=== PATIENT | male | born 1950 | race Caucasian/White ===

== ENCOUNTER → 2016-04-07 | Outpatient (CLI) | payer OTHER, MEDICARE ==
--- NOTE | 2016-04-07 12:21 | DX ---
PA and lateral chest x-ray 0938 hours. History: Followup pulmonary infiltrates. Findings: Comparison to March 20, 2016. Heart size and pulmonary vasculature remain normal. PICC line remains in place with tip in good posit ion. Patchy bilateral alveolar infiltrates have improved slightly since the prior study with persiste nt moderate patchy alveolar filling in some interstitial prominence remaining bilaterally with some s paring of the lung peripheries. There are no effusions evidence of pneumothorax. Osseous structures a re unchanged. Impression: Stable 2 minimal decrease in patchy bilateral infiltrates as detailed above with relative sparing of the lung periphery. Rule out underlying viral or bacterial pneumonia versus possibility o f pulmonary hemorrhage, pulmonary alveolar proteinosis, or cryptogenic organizing pneumonia.
== END ==
LOC: FIMAGING 09:42
PROVIDERS: ATTEND Internal Medicine Hematology & Oncology
DX: R91.8 Other nonspecific abnormal finding of lung field (principal)

== ENCOUNTER → 2016-04-14 | Outpatient (CLI) | payer OTHER, MEDICARE ==
[~2016-04-14] MED LIST: GADOBUTROL 10 ML VIAL IVP ONE
--- NOTE | 2016-04-14 10:37 | MR ---
MRI of the Brain (Without and With Contrast) April 14, 2016 Indication: ELECTRONIC WIRER lymphoma. Surveillance. Technique: T1-weighted images were acquired axially and sagittally from the foramen magnum to the ve rtex. Axial fast inversion recovery, fast T2-weighted, susceptibility, and diffusion-weighted axial images were obtained without contrast. Postcontrast axial and coronal images with the uneventful intr avenous administration of 6 mL Gadavist contrast. Comparison: MRI of the brain, February 11, 2016 and January 11, 2016. 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 Extensive hyperi ntense edema surrounding the enhancing lesion has developed on the FLAIR and T2-weighted sequences. T he enhancing right frontal component now measures 3.7 x 2.7 cm axially x 5.7 cm craniocaudal (nearly completely resolved on the February 2016 study). The left frontal lesion now measures 2.0 x 1.7 x 2.6 cm (previously 0.8 x 1.0 x 1.0 cm in February 2016). The frontal horns of the lateral ventricles are minimally compressed relative to the February 2016 study. The ventricular system is otherwise normal caliber and midline. No subfalcine or midline shift. No hemorrhagic transformation. The subacute int raparenchymal blood at the site of the right frontal biopsy has decreased in size, now measuring 1.3 x 1.2 cm (previously 1.5 x 1.4 cm), and now has signal characteristics of old blood. The lesion in the left cerebellar hemisphere along the inferior aspect of the left cerebellar peduncl e has increased T2 hyperintense edema and increased size and enhancement. The enhancing component now measures 2.0 x 2.7 x 2.1 cm (previously 0.6 x 0.6 x 0.7 cm in February 2016). No new intraparenchymal lesion has developed. No subdural hematoma. No evidence of cortical ischemia. The cervicooccipital junction is normal. The pituitary gland is normal size. The sagittal sinus and carotid and basivertebral arteries have normal black flow-void. Mild mucosal thickening is present in the ethmoid and maxillary sinuses. Impression: 1. 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 2. Increasing edema and mass effect in the frontal lobes result in minimal new mass effect upon the f rontal horns of the lateral ventricles. No subfalcine or downward shift. 3. No acute intracranial hemorrhage or evidence of cortical ischemia. Comment: The results were discussed with Dr. Johnny Burroughs shortly after study completion on April 14, 2016.
== END ==
LOC: FIMAGING 06:45
PROVIDERS: ATTEND Internal Medicine Hematology & Oncology
DX: C72.9 Malignant neoplasm of central nervous system, unspecified (principal); G93.6 Cerebral edema
CPT/HCPCS: 70553; A9585